=== PATIENT | male | born 1970 | race Caucasian/White ===

== ENCOUNTER 2017-08-31 08:48 | Emergency (ER) | payer BC, SELFPAY ==
[2017-08-31] MEDS ORDERED: HYDROcodone/Acetaminophen 5/325 mg Tablet ONE (09:10)
[2017-08-31] MEDS ORDERED: Acetaminophen 325 MG TAB ONE (09:11)
[2017-08-31] MEDS ORDERED: Erythromycin Base 0.5% Ophth Oint 3.5 gm Tube ONE (09:11)
== END 2017-08-31 09:22 | disposition home or self-care (01) ==
LOC: MADERS 08:48
DX: H15.002 Unspecified scleritis, left eye (principal); E11.9 Type 2 diabetes mellitus without complications; E78.5 Hyperlipidemia, unspecified; I10 Essential (primary) hypertension; Z79.899 Other long term (current) drug therapy; Z79.4 Long term (current) use of insulin
CPT/HCPCS: 99282

== ENCOUNTER 2023-05-15 19:30 | Emergency (ER) | payer OTHER, SELFPAY ==
[2023-05-15] MEDS ORDERED: Lidocaine 1% w/Epinephrine 1:100K 20 ML VIAL ONE (19:54)
[2023-05-15] MEDS ORDERED: Ibuprofen 800 MG TAB ONE (19:54)
[2023-05-15] MEDS ORDERED: Amoxicillin/Potassium Clav 875 MG TAB ONE (19:54)
[2023-05-15] MEDS ORDERED: Bacitracin 1 PK ONE (20:32)
== END 2023-05-15 20:56 | disposition home or self-care (01) ==
LOC: MADERS 19:30
DX: S91.052A Open bite, left ankle, initial encounter (principal); S91.012A Laceration without foreign body, left ankle, initial encounter; E11.9 Type 2 diabetes mellitus without complications; I10 Essential (primary) hypertension; E78.5 Hyperlipidemia, unspecified; F17.220 Nicotine dependence, chewing tobacco, uncomplicated; Z79.899 Other long term (current) drug therapy; Z79.84 Long term (current) use of oral hypoglycemic drugs; Z79.82 Long term (current) use of aspirin; W54.0XXA Bitten by dog, initial encounter
CPT/HCPCS: 12002

== ENCOUNTER 2023-12-27 11:23 | Emergency (ER) | payer BC, SELFPAY ==
[2023-12-27 12:20] LABS: SARS-CoV-2 E Target Positive; SARS-CoV-2 N2 Target Positive; SARS-CoV-2 NAA Rapid Test DETECTED (NotDetected); SARS-CoV-2 RdRP gene Positive
== END 2023-12-27 13:09 | disposition home or self-care (01) ==
LOC: MADERS 11:23
DX: U07.1 COVID-19 (principal); E11.9 Type 2 diabetes mellitus without complications; E78.5 Hyperlipidemia, unspecified; I10 Essential (primary) hypertension; F17.220 Nicotine dependence, chewing tobacco, uncomplicated; Z79.899 Other long term (current) drug therapy; Z79.82 Long term (current) use of aspirin; Z79.84 Long term (current) use of oral hypoglycemic drugs
CPT/HCPCS: 87081; 87430; 87804; 99283; U0002